=== PATIENT | female | born 1940 | race Caucasian/White ===

== ENCOUNTER → 2017-04-04 | Outpatient (CLI) | payer MEDICARE, BC ==
[~2017-04-04] MED LIST: ALLBC PO; AMLO10TA2 PO; BOSW5TAB PO; COUM2TAB PO; COUM5TAB PO; ENOX60P SQ; FERR324T4 PO; FIBE625T10 PO; IBUP1CAP PO; MVI PO; OXYC1TAB63 PO; PREV30CA36 PO; RANI150T PO; TAB-TAB PO; TRAM50TA PO; TRIA37.5 PO
[2017-04-04 15:17] LABS: BASOPHIL # 0.1 TH/MM3 (0-0.2); BASOPHIL % 0.9 % (0.0-2.0); EOSINOPHIL # 0.1 TH/MM3 (0-0.4); EOSINOPHIL % 1.4 % (0.0-4.0); HEMATOCRIT 39.3 % (35.0-46.0); HEMO FLAGS DIFF FINAL; LYMPH % 19.1 % (9.0-44.0); LYMPHOCYTE # 1.7 TH/MM3 (1.0-4.8); MEAN CELL VOLUME 80.9 FL (80.0-100.0); MEAN CORPUSCULAR HEMOGLOBIN 26.6 PG (27.0-34.0); MEAN CORPUSCULAR HGB CONC 32.9 % (32.0-36.0); MONO % 9.1 % (0.0-8.0); NEUT % 69.5 % (16.0-70.0); PLATELET COUNT 358 TH/MM3 (150-450); RED BLOOD COUNT 4.86 MIL/MM3 (4.00-5.30); RED CELL DISTRIBUTION WIDTH 17.2 % (11.6-17.2); WHITE BLOOD COUNT 8.6 TH/MM3 (4.0-11.0)
[2017-04-04 15:24] LABS: APTT (PATIENT) 29.6 SEC (24.3-30.1); INTERNATIONAL NORMALIZED RATIO 0.9 RATIO
--- NOTE | 2017-04-04 15:33 | RADRPT ---
EXAM DATE/TIME: 04/04/2017 14:41 [place] COMPARISON: No previous studies available for comparison. INDICATIONS : Evaluate for pneumonia, pneumothorax or communicable diseases MEDICAL HISTORY : None. SURGICAL HISTORY : None. ENCOUNTER: Initial ACUITY: 1 day PAIN SCORE: 0/10 LOCATION: Bilateral chest FINDINGS: The heart is normal in size. There are chronic interstitial changes throughout the pulmonary parenchy ma. The lungs are otherwise clear. The visualized bony structures are grossly intact. There are degen erative changes in the shoulders bilaterally. CONCLUSION: 1. Chronic interstitial changes. No acute abnormality. Parminder Hernández MD on April 04, 2017 at 15:30 Board Certified Radiologist. This report was verified electronically.
[2017-04-04 15:40] LABS: ALT (GPT) 15 U/L (10-53); ANION GAP 10 MEQ/L (5-15); AST (GOT) 11 U/L (15-37); BICARBONATE 27.2 MEQ/L (21.0-32.0); BLOOD UREA NITROGEN 17 MG/DL (7-18); CHLORIDE 103 MEQ/L (98-107); GLOMERULAR FILTRATION RATE 58 ML/MIN (>89); GLUCOSE,FASTING 85 MG/DL (74-99); POTASSIUM 3.7 MEQ/L (3.5-5.1); SODIUM (NA) 140 MEQ/L (136-145)
[2017-04-04 15:42] LABS: ALKALINE PHOSPHATASE 104 U/L (45-117); TOTAL BILIRUBIN ADULT 0.4 MG/DL (0.2-1.0)
--- NOTE | 2017-04-05 11:46 | EKG ---
Date Performed: 04/04/2017 Time Performed: 14:04:59 PTAGE: 76 years EKG: Sinus rhythm Since previous tracing, no significant change noted NORMAL ECG PREVIOUS TRACING : 11/24/2007 10.50 DOCTOR: Lucas Alvarez Interpretating Date/Time 04/05/2017 12:06:50
== END ==
LOC: CPRE 13:39
PROVIDERS: ATTEND Obstetrics & Gynecology Gynecologic Oncology
DX: Z01.812 Encounter for preprocedural laboratory examination (principal); Z01.811 Encounter for preprocedural respiratory examination; Z01.810 Encounter for preprocedural cardiovascular examination; N95.0 Postmenopausal bleeding
CPT/HCPCS: 36415; 71020; 80053; 85025; 85610; 85730; 93005

== ENCOUNTER 2017-04-17 05:21 | Observation (INO) | payer MEDICARE, BC ==
[~2017-04-17] VITALS: Ht 167.6 cm; Wt 133.2 kg
[~2017-04-17 05:21] MED LIST changes: -ALLBC PO; -COUM2TAB PO; -COUM5TAB PO; -ENOX60P SQ; -FERR324T4 PO; -MVI PO; -OXYC1TAB63 PO; -PREV30CA36 PO; -TAB-TAB PO; -TRAM50TA PO
[2017-04-17] MEDS ORDERED: METOPROLOL TARTRATE 25 MG TAB PO PRN (06:00)
[2017-04-17] MEDS ORDERED: CHLORHEXIDINE GLUCONATE 2 % 1 PACK (2 CLOTHS) TOPICAL PRN (06:00)
[2017-04-17] MEDS ORDERED: SODIUM CHLORIDE FLUSH PRN IV FLUSH (06:00)
[2017-04-17] MEDS ORDERED: POVIDONE IODINE 5% (ANTISEPSIS KIT) 4 APPLICATIONS EACH NARE PRN (06:00)
[2017-04-17] MEDS ORDERED: ceFAZolin 2 GM PREMIX 50 ML IV SCH (06:00)
[2017-04-17] MEDS ORDERED: LACTATED RINGER'S 1000 ML IV PRN (06:00)
[2017-04-17] MEDS ORDERED: INSULIN HUMAN REGULAR 1,000 UNITS/10 ML VIAL SQ PRN (06:00)
[2017-04-17] MEDS ORDERED: HEPARIN SODIUM - SQ 10,000 UNITS/ML VIAL SQ PRN (06:00)
[2017-04-17] MEDS ORDERED: SODIUM CHLORID 0.9% 500 ML IV PRN (06:00)
[2017-04-17 06:15] VITALS: BP 159/85; PULSE 90; RESP 20; TEMP 97.1; O2SAT 93
[2017-04-17] MEDS ORDERED: DEXAMETHASONE SOD PHOS 4 MG/ML VIAL ONE (07:13)
[2017-04-17] MEDS ORDERED: MIDAZOLAM HCL 2 MG/2 ML VIAL ONE (07:13)
[2017-04-17] MEDS ORDERED: HYDROmorphone HCL PF 2 MG/ML VIAL ONE (08:05)
[2017-04-17] MEDS ORDERED: SUGAMMADEX SODIUM 200 MG/2 ML VIAL IV PUSH ONE ×2 (08:05)
[2017-04-17] MEDS ORDERED: ACETAMINOPHEN 1000 MG/100 ML VIAL IV ONE (08:05)
[2017-04-17] MEDS ORDERED: LIDOCAINE 1%/EPINEPHrine 1:100,000 SOLN 30 ML VIAL INFIL ONE (08:30)
[2017-04-17] MEDS ORDERED: SODIUM CHLORIDE FLUSH BID IV FLUSH SCH (09:00)
[2017-04-17] MEDS ORDERED: diphenhydrAMINE HCL 50 MG/ML VIAL ONE (10:06)
[2017-04-17] MEDS ORDERED: METHYLENE BLUE 10 MG/ML VIAL OTHER ONE (10:11)
[2017-04-17] MEDS ORDERED: ceFAZolin INJ 1,000 MG VIAL IV ONE (10:18)
[2017-04-17] MEDS ORDERED: SILVER NITR/POTASSIUM NITRATE APPLICATORS TOPICAL ONE (10:50)
[2017-04-17] MEDS ORDERED: diphenhydrAMINE HCL 25 MG CAP PO PRN (11:15)
[2017-04-17] MEDS ORDERED: ONDANSETRON HCL 4 MG/2 ML VIAL IVP PRN (11:15)
[2017-04-17] MEDS ORDERED: LORazepam 0.5 MG TAB PO PRN (11:15)
[2017-04-17] MEDS ORDERED: SODIUM CHLORIDE 0.9% FLUSH 10 ML FLUSH IV FLUSH PRN (11:15)
[2017-04-17] MEDS ORDERED: oxyCODONE/ACETAMINOPHEN 5 MG/325 MG TAB PO PRN ×2 (11:15)
[2017-04-17] MEDS ORDERED: fentaNYL CITRATE 250 MCG/5 ML AMP ONE (11:20)
[2017-04-17] MEDS: D5-1/2 NS + KCL 20 MEQ INJ 1,000 ML IV SCH ×2 (11:30→20:30)
[2017-04-17] MEDS ORDERED: DO NOT ADM ANY ANTICOAGULANT DRUGS PRN (11:30)
[2017-04-17] MEDS ORDERED: *morphine SULFATE 8 MG/ML PERIprocedure ONLY ONE (11:35)
[2017-04-17] MEDS ORDERED: KETOROLAC TROMETHAMINE 30 MG/ML (IVP) VIAL IVP SCH (12:00)
[2017-04-17] MEDS ORDERED: ePHEDrine/NS 25 MG/5 ML SYR IV ONE (13:20)
[2017-04-17] MEDS ORDERED: PROPOFOL 200 MG/20 ML AMP IV ONE (13:20)
[2017-04-17] MEDS ORDERED: ONDANSETRON HCL 4 MG/2 ML VIAL IV PUSH ONE (13:20)
[2017-04-17] MEDS ORDERED: KETOROLAC TROMETHAMINE 60 MG/2 ML (IM) VIAL IM ONE (13:20)
[2017-04-17] MEDS ORDERED: VECURONIUM BROMIDE 10 MG VIAL IV ONE (13:21)
[2017-04-17] MEDS ORDERED: NORMOSOL R INJ 1,000 ML IV ONE (13:21)
[2017-04-17 13:30] VITALS: BP 102/67; PULSE 90; RESP 18; TEMP 97.4; O2SAT 93
--- NOTE | 2017-04-17 14:48 | PD.ONC.PN ---
Subjective Subjective Remarks Post op pt is resting in bed with most pain to midline incision site denies any n/v would like to try Tylenol instead of Percocet for pain she understands she will also be getting Toradol IV q 6 hours Objective Data Date Time Temp Pulse Resp B/P Pulse Ox O2 Delivery O2 Flow Rate FiO2 04/17/17 13:30 97.4 90 18 102/67 93 04/17/17 06:15 97.1 90 20 159/85 93 04/17/17 04/17/17 04/17/17 07:00 15:00 23:00 Intake Total 1940 ml Output Total 750 ml Balance 1190 ml Laboratory Results Laboratory Tests Test 04/17/17 06:10 Blood Type A POSITIVE Antibody Screen NEGATIVE Crossmatch Leukocyte-Reduced Red Blood Cells Blood Bank Comment Administered Medications Medications (Trade) Dose Ordered Sig/Pauly Route PRN Reason Start Time Stop Time Status Last Admin Dose Admin Potassium Chloride/Dextrose/ Sod Cl (D5-1/2 NS + KCl 20 Meq Inj) 1,000 ml @ 100 mls/hr Q10H IV 04/17/17 11:02 04/17/17 11:30 Objective Remarks GENERAL: Well-nourished, well-developed patient. SKIN: Warm and dry. HEAD: Normocephalic. EYES: No scleral icterus. No injection or drainage. CARDIOVASCULAR: Regular rate and rhythm without murmurs. RESPIRATORY: Breath sounds equal bilaterally. No accessory muscle use. GASTROINTESTINAL: SS are dry with little dry blood to midline SS, EXTREMITIES: No cyanosis, or edema. MUSCULOSKELETAL: Adequate muscle tone. NEUROLOGICAL: No obvious focal deficit. Awake, alert, and oriented x3. PSYCHIATRIC: Appropriate mood and affect; insight and judgment normal. Assessment/Plan Problem List: (1) Post-operative state Status: Acute Plan: s/p RA Lap hyst with BSO final path is pending post op orders in chart will also give her Tylenol PO for pain Toradol IV q 6 hours ADAT can get OOB to chair D/C maddie in AM anticipate discharge home tomorrow pt will follow up in rotor coil taper/onc clinic in 2 weeks for follow up Eliel Dunlap Apr 17, 2017 14:48
[2017-04-17 16:00] VITALS: BP 118/67; PULSE 86; RESP 18; TEMP 97.6; O2SAT 94
[2017-04-17] MEDS ORDERED: ACETAMINOPHEN 500 MG CPLT PO PRN (16:00)
[2017-04-17] MEDS: KETOROLAC TROMETHAMINE 30 MG/ML (IVP) VIAL IVP SCH ×2 (16:17→22:21)
[2017-04-17 20:00] VITALS: BP 110/69; PULSE 85; RESP 17; TEMP 96.8; O2SAT 94
[2017-04-17] MEDS ORDERED: SODIUM CHLORIDE 0.9% FLUSH 10 ML FLUSH IV FLUSH SCH (21:00)
[2017-04-18] VITALS: BP 125/69; PULSE 85; RESP 17; TEMP 97.3; O2SAT 96
[2017-04-18 04:00] VITALS: BP 124/64; PULSE 82; RESP 17; TEMP 98.2; O2SAT 92
[2017-04-18] MEDS: KETOROLAC TROMETHAMINE 30 MG/ML (IVP) VIAL IVP SCH (04:31)
[2017-04-18 05:53] LABS: BASOPHIL # 0.1 TH/MM3 (0-0.2); BASOPHIL % 0.5 % (0.0-2.0); EOSINOPHIL % 0.2 % (0.0-4.0); HEMATOCRIT 38.1 % (35.0-46.0); LYMPH % 6.3 % (9.0-44.0); LYMPHOCYTE # 0.8 TH/MM3 (1.0-4.8); MEAN CELL VOLUME 82.7 FL (80.0-100.0); MEAN CORPUSCULAR HGB CONC 31.4 % (32.0-36.0); MONO % 5.6 % (0.0-8.0); NEUT % 87.4 % (16.0-70.0); PLATELET COUNT 290 TH/MM3 (150-450); RED CELL DISTRIBUTION WIDTH 17.7 % (11.6-17.2); WHITE BLOOD COUNT 12.6 TH/MM3 (4.0-11.0)
[2017-04-18 05:57] LABS: HEMO FLAGS AUTO DIFF
[2017-04-18 06:23] LABS: BICARBONATE 24.2 MEQ/L (21.0-32.0); POTASSIUM 3.4 MEQ/L (3.5-5.1)
[2017-04-18 06:53] LABS: BANDS 8 % (0-6); NEUTROPHIL # MANUAL DIFF 11.1 TH/MM3 (1.8-7.7); POLYS (SEG NEUTROPHILS) 80 % (16-70); WBC DIFF SAMPLE 100
[2017-04-18 06:55] LABS: SCAN/DIFF FINAL DIFF MANUAL
[2017-04-18] MEDS ORDERED: OXYC1TAB63 PO (07:29)
[2017-04-18] MEDS ORDERED: POTASSIUM CHLORIDE 20 MEQ CONTROLLED RELEASE TAB PO ONE (07:30)
[2017-04-18 08:00] VITALS: BP 130/80; PULSE 61; RESP 20; TEMP 96; O2SAT 96
[2017-04-18] MEDS: D5-1/2 NS + KCL 20 MEQ INJ 1,000 ML IV SCH (08:10)
[2017-04-18] MEDS ORDERED: TRAM50TA PO (08:29)
[2017-04-18] MEDS ORDERED: CALCIUM POLYCARBOPHIL 625 MG TAB PO SCH (09:00)
[2017-04-18] MEDS ORDERED: FAMOTIDINE 20 MG TAB PO SCH (09:00)
--- NOTE | 2017-04-18 19:03 | MP ---
cc: ROBERTO CHOI M.D., KELLY L. MD SCHNEIDER, JULIE D. MD DATE OF SURGERY 04/17/17 PREOPERATIVE DIAGNOSIS Postmenopausal bleeding, thickened endometrial stripe. Endometrial polyps. Enlarged uterus. PREOPERATIVE DIAGNOSIS Postmenopausal bleeding, thickened endometrial stripe. Endometrial polyps. Enlarged uterus. PROCEDURE Robotic-assisted laparoscopic hysterectomy, bilateral salpingo-oophorectomy. SURGEON Zachariah Garzon MD EMT DRIVER [place] medication assistant ANESTHESIA General endotracheal anesthesia ESTIMATED BLOOD LOSS 150 mL IV FLUIDS 1700 mL URINE OUTPUT 600 mL HISTORY A 76-year-old female postmenopausal bleeding, thickened endometrial stripe. She underwent hysteroscopy D&C where the endometrium looked markedly abnormal. Pathology from that sampling showed benign polyps. However, there was still clinical suspicion of malignancy. She remained symptomatic with bleeding. She was referred to [facility]. She was seen and counseled, presented with options, was in favor of definitive surgical management. She is seen again in the preop holding area the day of surgery where findings and plan of care are again reviewed. Questions were answered. She expressed good understanding and wished to move forward with surgery. FINDINGS The uterine cavity sounded to approximately 10 cm, symmetrically enlarged uterus. The tubes and ovaries grossly appeared normal. No appreciably suspiciously enlarged retroperitoneal lymph nodes. The peritoneal surfaces were smooth. Liver diaphragm edges were smooth. Omentum, large and small bowel and adjacent mesentery appeared normal without peritoneal implants. There were diverticulum noted without diverticulitis. There were some adhesions against left pelvic sidewall between the colon and surrounding tissue. Preliminary pathology showed large endometrial polyp, possibly other smaller polyps. Frozen section confirmed it to appear benign. There was no evidence of hyperplasia, atypia or malignancy. STATEMENT OF COMPLEXITY Statement complexity was increased due to elevated body surface area weight of 131 kg. Modifier should be applied accordingly. PROCEDURE IN DETAIL The patient taken to the operating room placed in dorsal lithotomy position after general endotracheal anesthesia was administered. Time-out was undertaken. The patient was identified by sight recognition, hospital ID bracelet and the proposed procedure was reviewed and confirmed. She was carefully positioned in padded Barry stirrups. Her arms were padded and secured to the side. She was further secured to the operating table with egg crate padding and tape in across chest over the shoulder fashion. All sites noted to be properly aligned with no malalignments or pressure points. She was prepped in sterile fashion, draped below the waist, placed in high lithotomy position, cervix was grasped, uterine cavity sounded, large V-Care manipulator inserted and secured usual fashion. Small catheter placed in the bladder. She was returned to low lithotomy position. Change of sterile gloves was undertaken. We completed draping in anticipation of laparoscopy and confirmed there was an orogastric tube in the stomach on suction. With manual elevation of the abdominal wall on direct laparoscopic visualization, 5 mm cannula introduced into the left upper abdomen. Carbon dioxide gas was insufflated and an atraumatic entry was confirmed. A 12 mm cannula placed in midline above the umbilicus, 8 mm cannula was placed in the right upper quadrant and left lateral quadrant. The original five exchanged for an 8-mm cannula. Peritoneal washings were obtained for cytology. The anatomy was surveyed with findings as described above. She was placed in steep Trendelenburg position. Small bowel was folded back on its mesenteric root. Three Ray-Damian sponges were placed around the root of the small bowel mesentery. Robotic system brought into the operative field attached in usual fashion. Monopolar scissors, fenestrated bipolar forceps and Prograsp manipulators were placed in arms #1, 2 and 3 respectively and I took my place at the surgeon's console. Right round ligament isolated, cauterized, transected. The anterior and posterior leafs of the broad ligament were opened. The right ureter was identified. The right infundibulopelvic ligament was isolated to the level of the pelvic brim where it was cauterized and transected. Posterior peritoneum opened along the right side of uterus and cervix. The right vesicouterine peritoneum was dissected off the lower uterine segment and cervix. The right uterine vessels were skeletonized, cauterized and transected as were the cardinal, paracervical and uterosacral ligaments. Attention was directed toward the left side. Adhesions were taken down to mobilize the colon. The left round ligament was isolated, cauterized, transected. The anterior and posterior leafs of the broad ligament were opened. Left ureter was identified. Left infundibulopelvic ligament was isolated. The intervening peritoneum was opened. The infundibulopelvic ligament was cauterized at the level of the pelvic brim and transected. Posterior peritoneum opened along the left side of uterus and cervix. The left vesicouterine peritoneum was dissected off the lower uterine segment and cervix. Left uterine vessels were skeletonized, cauterized and transected as were the cardinal, paracervical and uterosacral ligaments. Circumferential colpotomy was performed the cervix from the upper vagina. The specimen was withdrawn transvaginally which included uterus, cervix, tubes and ovaries and a pneumo-occluder balloon was placed in the vagina to maintain pneumoperitoneum. Instruments 1 and 3 exchanged for needle drivers as a 0 Vicryl suture was introduced. Vaginal cuff was closed starting at the left corner, full-thickness closure, including the posterior peritoneum, edge of the sacral ligament tied via instrument tie. The suture was held on counter traction as a running full-thickness continuous closure was carried across the vaginal cuff to the contralateral corner where it was similarly fixed secured, tied and the needle was cut and removed. The integrity of the bladder was confirmed by filling the bladder with saline dyed with methylene blue, distended nicely under pressure. There were no areas of blue to suggest thinning of the bladder. There was no extravasation of dye. There was a good margin between the edge of the bladder and the vaginal cuff suture line and good peristalsis of ureters bilaterally and the bladder was drained. Pelvis was thoroughly irrigated. Small bleeders rendered hemostatic with bipolar cautery, further irrigated and hemostatic Fox powder was placed across the vaginal cuff. Pathology came back showing benign findings. Therefore, it was felt that all reasonable surgical objectives had been completed. The robotic instruments were removed. The robotic system was disengaged from the operative field. I reentered the bedside under sterile condition. Each of the Ray-Damian sponges were removed through the 12-mm cannula. Each were inspected and noted to be removed in their entirety. Visual inspection confirmed there were no remaining foreign objects in the peritoneal cavity. Preliminary counts were correct. A 12 mm fascial defect closed under laparoscopic visualization using a needle using a needle apparatus with 0 Vicryl sutures, interrupted, tied securely, rendered the fascia completely airtight and hemostatic. The remaining cannulas were withdrawn. Carbon dioxide gas was removed from the peritoneal cavity. 3-0 Vicryl subcutaneous, 3-0 Vicryl subcuticular and Steri-Strips were used to close these incisions. She was returned to dorsal lithotomy position. Pelvic exam confirmed there were no remaining foreign objects in the vagina. Vaginal cuff well supported, hemostatic. No vaginal lacerations. A little bit of superficial mucosal irritation and the remainder of the Fox was placed in the vaginal canal. Final counts were correct. She was returned to dorsal supine position and was pending reversal of anesthesia when I left the operating room to precede her to the Post Anesthesia Care Unit and to speak to family member who was waiting in the surgical waiting area. MD KATERINA Singletary/ /8:03 AM /6:44 PM
--- NOTE | 2017-04-21 11:42 | MD ---
cc: ROBERTO CHOI M.D., KELLY L. MD SNYDER, JULIE ADMISSION DATE: 04/17/2017 DISCHARGE DATE: 04/18/2017 PROCEDURE 04/17/2017 - Robotic-assisted laparoscopic hysterectomy, bilateral salpingo-oophorectomy. PRELIMINARY DIAGNOSIS Postmenopausal bleeding. Benign endometrial polyps. HOSPITAL COURSE She did well during early postoperative course. She was tolerating oral intake. Small was removed pending voiding. She is hemodynamically stable, adequate pain control. OBJECTIVE In's and out's - 3610/1600. LABS H&H 11.9 and 38.1. Electrolytes - BUN 8 and creatinine 0.9, potassium slightly low at 3.4. PHYSICAL EXAMINATION VITAL SIGNS: She is afebrile. Pulse 82-90, respirations 17-18, blood pressure 102-125/64-67. O2 saturations at least 96% while awake, 92% while sleeping. GENERAL: Alert and oriented x 3. LUNGS: Clear except for mild rales at the bases. CARDIOVASCULAR: Regular rate and rhythm. ABDOMEN: Soft. Incisions clean and dry. NITROCELLULOSE OPERATOR: No bleeding. EXTREMITIES: Nontender. ASSESSMENT Postoperative day #1 doing well in early postop period. Findings at the time of surgery and preliminary pathology discussed. Activities and restrictions were again reviewed. Questions were answered. She expressed good understanding. PLAN Anticipate she will reach criteria for discharge to home today. She is to contact our office to ensure she has a postop followup in two weeks. She is to resume prior medications. She has a prescription for Percocet and she can contact our office between now and the time of scheduled followup should she have any questions or concerns. MD KATERINA Singletary/HASMUKH /7:36 AM /11:37 AM
== END 2017-04-18 11:23 | disposition home or self-care (01) ==
LOC: HSDC 05:21 → HSDI 11:06 → HOCA 13:22
PROVIDERS: ADMIT Obstetrics & Gynecology Gynecologic Oncology; ATTEND Obstetrics & Gynecology Gynecologic Oncology
DX: N95.0 Postmenopausal bleeding (principal); R93.8 Abnormal findings on diagnostic imaging of other specified body structures; N84.0 Polyp of corpus uteri; N85.2 Hypertrophy of uterus; D25.1 Intramural leiomyoma of uterus; N80.0 Endometriosis of uterus; N83.292 Other ovarian cyst, left side; N83.291 Other ovarian cyst, right side; N83.8 Other noninflammatory disorders of ovary, fallopian tube and broad ligament; Z85.3 Personal history of malignant neoplasm of breast
CPT/HCPCS: 00840; 58571; 80048; 85007; 85027; 86850; 86900; 86901; 86920; 88112; 88307; 88331; 94150; G0378; J0131; J0690; J1100; J1170; J1200; J1644; J1885; J2250; J2270; J2405; J3010; J3480; J7120; S2900